=== PATIENT | male | born 1970 | race Caucasian/White ===

== ENCOUNTER 2019-03-26 12:58 | Inpatient (IN) | payer OTHER ==
--- NOTE | 2019-03-26 13:18 | BHS.RME ---
Substance Use & Tx History - Substance Use History Opiates (Heroin) Frequency of use: Daily Substance route: Injection (ex: intravenous or skin popping) Date of Last Use: 03/26/19 Cocaine (Powder) Frequency of use: Less than 3 times per week Substance route: Injection (ex: intravenous or skin popping) Date of Last Use: 03/25/19 Alcohol Frequency of use: More than 3 times per week Substance route: Oral Date of Last Use: 03/25/19 Cannabis Frequency of use: Daily Substance route: Smoking Date of Last Use: 03/25/19 COWS - Scale Resting Pulse: 0= [place] 80 or Below Sweatin=Flushed/Facial Moisture Restless Observation: 1= Difficult to Sit Still Pupil Size: 1= Pupils >than Normal Bone or Joint Aches: 2= Severe Diffuse Aches Runny Nose/ Eye Tearin= Runny Nose/Eyes GI Upset > 30mins: 2= Nausea/Diarrhea Tremor Observation: 1= Tremor [place], Not Seen Yawning Observation: 1= 1-2x During Session Anxiety or Irritability: 1=Feels Anxious/Irritable Goose Flesh Skin: 3=Piloerection COWS Score: 16 CIWA Nausea/Vomitin Muscle Tremors: 2 Anxiety: 3 Agitation: 2 Paroxysmal Sweats: 2 Orientation: 0-Oriented Tacttile Disturbances: 0-None Auditory Disturbances: 0-None Visual Disturbances: 0-None Headache: 0-None Present CIWA-Ar Total Score: 12
[2019-03-26 13:55] VITALS: BMI 29.0
--- NOTE | 2019-03-26 14:22 | HP ---
COWS - Scale Resting Pulse: 0= [place] 80 or Below Sweatin=Flushed/Facial Moisture Restless Observation: 1= Difficult to Sit Still Pupil Size: 1= Pupils >than Normal Bone or Joint Aches: 2= Severe Diffuse Aches Runny Nose/ Eye Tearin= Runny Nose/Eyes GI Upset > 30mins: 2= Nausea/Diarrhea Tremor Observation: 1= Tremor [place], Not Seen Yawning Observation: 1= 1-2x During Session Anxiety or Irritability: 1=Feels Anxious/Irritable Goose Flesh Skin: 3=Piloerection COWS Score: 16 CIWA Score Nausea/Vomitin Muscle Tremors: 2 Anxiety: 3 Agitation: 2 Paroxysmal Sweats: 2 Orientation: 0-Oriented Tacttile Disturbances: 0-None Auditory Disturbances: 0-None Visual Disturbances: 0-None Headache: 0-None Present CIWA-Ar Total Score: 12 - Admission Criteria [facility] Guidelines: Admission for Medically Managed Detox: Requires at least one of the followin. CIWA greater than 12 2. Seizures within the past 24 hours 3. Delirium tremens within the past 24 hours 4. Hallucinations within the past 24 hours 5. Acute intervention needed for co occurring medical disorder 6. Acute intervention needed for co occurring psychiatric disorder 7. Severe withdrawal that cannot be handled at a lower level of care (continued vomiting, continued diarrhea, abnormal vital signs) requiring intravenous medication and/or fluids 8. Admitting History and Physical - Admission Chief Complaint: Mr. Butler is a 49 yo gentleman who presents to [facility] for detox from heroin, cocaine and alcohol. History of Present Illness: Mr. Butler is a 49 yo gentleman who presents to [facility] for detox from heroin, cocaine and alcohol. He has never been to this facility. He as in a methadone program 2 years ago. He was at [facility] last week, left AMA because he could not shower or rest. PMH: HTN on lisinopril and HCTZ PSH: right foot ligament repair Psych: none Substance use history: Heroin: first use age 30s, last use: yest, quantity: 6-8 bags. IV. 3 ODs, Narcan used once. Last OD: 3 years ago Alcohol: first use at the age of 12y, last use 2 days ago, quantity: one pint Vodka up to 3 days per week. Beer: 6 pack of 12 oz, up to 4 days per week. History black outs, last one years ago. No history of withdrawal seizure. Has an "eye poultry farmer". Gets the shakes if abstinent. Cocaine: first use at the age of 15 yo, last use 2 days ago, quantity: $20, injection Marijuana: first use at the age of 11y, last use last night, $10/3 days Nictotine: first use at the age of 11 yo, last smoked 2 hours ago, 1/2 ppd - Smoking History Smoking history: Current every day smoker Have you smoked in the past 12 months: Yes Aproximately how many cigarettes per day: 10 Admission ROS S - HPI Allergies/Adverse Reactions: Allergies Allergy/AdvReac Type Severity Reaction Status Date / Time No Known Allergies Allergy Verified 03/26/19 13:48 - Ebola screening Have you traveled outside of the country in the last 21 days: No Have you had contact with anyone from an Ebola affected area: No Have you been sick,other than usual withdrawal symptoms: No Do you have a fever: No - Review of Systems Constitutional: Chills EENT: reports: Blurred Vision, Hearing Loss Respiratory: reports: No Symptoms reported Cardiac: reports: No Symptoms Reported GI: reports: Nausea : reports: No Symptoms Reported Musculoskeletal: reports: Back Pain Integumentary: reports: No Symptoms Reported Neuro: reports: No Symptoms reported Endocrine: reports: No Symptoms Reported Hematology: reports: No Symptoms Reported Psychiatric: reports: Anxious Patient History - Patient Medical History Hx Asthma: No Hx Chronic Obstructive Pulmonary Disease (COPD): No Hx Cardiac Disorders: No Hx Hypertension: Yes Hx Seizures: No Hx Diabetes: No Hx Gastrointestinal Disorders: No Hx Genitourinary Disorders: No Hx Sexually Transmitted Disorders: No Hx Renal Disease (ESRD): No Hx Depression: No Hx Suicide Attempt: No Hx Schizophrenia: No - Patient Surgical History Past Surgical History: Yes Hx Orthopedic Surgery: Yes (Fx R ligament repair) Anesthesia Reaction: No - PPD History Previous Implant?: Yes Documented Results: Negative w/o proof Implanted On Prior [facility] Admission?: No - Smoking Cessation Smoking history: Current every day smoker Have you smoked in the past 12 months: Yes Aproximately how many cigarettes per day: 10 Hx Chewing Tobacco Use: No Initiated information on smoking cessation: Yes 'Breaking Loose' booklet given: 03/26/19 - Substances abused Heroin Substance route: Injection Frequency: Daily Amount used: 6-10 bags Age of first use: 28 Date of last use: 03/25/19 Alcohol Substance route: Oral Frequency: Daily Amount used: 1 pint vodka Age of first use: 13 Date of last use: 03/23/19 Marijuana/Hashish Substance route: Smoking Frequency: Daily Amount used: 1 joint Age of first use: 11 Date of last use: 03/25/19 Cocaine Substance route: Injection Frequency: 1-2 times per week Amount used: $20 Age of first use: 15 Date of last use: 03/24/19 Admission Physical Exam [facility] - Vital Signs Vital Signs: Vital Signs - 24 hr 03/26/19 13:49 Temperature 97.7 F Pulse Rate 66 Respiratory 18 Rate Blood Pressure 151/73 - Physical General Appearance: Yes: Within Normal Limits, Mild Distress HEENTM: Yes: Hearing grossly Normal, Normal Voice Respiratory: Yes: Lungs Clear, Normal Breath Sounds Neck: Yes: Within Normal Limits Breast: Yes: Breast Exam Deferred Cardiology: Yes: Regular Rate, S1, S2 Abdominal: Yes: Normal Bowel Sounds, Non Tender, Flat, Soft Back: Yes: Normal Inspection Musculoskeletal: Yes: Within Normal Limits Extremities: Yes: Within Normal Limits Neurological: Yes: Fully Oriented, Alert Integumentary: Yes: Track [place]orne (no signs of infection) - Diagnostic (1) Opioid dependence, uncomplicated Current Visit: Yes Status: Acute (2) Alcohol dependence with withdrawal, uncomplicated Current Visit: Yes Status: Acute (3) Cocaine abuse Current Visit: Yes Status: Acute (4) Nicotine dependence Current Visit: Yes Status: Acute (5) HTN (hypertension) Current Visit: Yes Status: Chronic (6) Cannabis abuse Current Visit: Yes Status: Chronic Cleared for Admission [facility] - Detox or Rehab [facility] Level of Care: Medically Managed Breathalyzer - Breathalyzer Breathalyzer: 0 Urine Drug Screen - Test Device Lot number: [id number] Expiration date: 01/11/21 - Control Is test valid?: Yes - Results Drug screen NEGATIVE: No Urine drug screen results: THC-Marijuana, SPENCER-Cocaine, FEN-Fentanyl, MOP-Opiates , MTD-Methadone Inpatient Rehab Admission - Rehab Decision to Admit Inpatient rehab admission?: No
[2019-03-26] MEDS ORDERED: IBUPROFEN 400 MG TABLET (FP) PO PRN (14:28)
[2019-03-26] MEDS ORDERED: hydrOXYzine PAMOATE 25 MG CAPSULE (FP) PO PRN (14:28)
[2019-03-26] MEDS ORDERED: MELATONIN 5 MG TABLETS PO PRN (14:28)
[2019-03-26] MEDS ORDERED: MAG HYDROX/AL HYDROX/SIMETH 30 ML UNIT-DOSE CUP PO PRN (14:28)
[2019-03-26] MEDS ORDERED: METHOCARBAMOL 500 MG TABLET PO PRN (14:28)
[2019-03-26] MEDS ORDERED: ACETAMINOPHEN 325 MG TABLET (FP) PO PRN ×2 (14:28)
[2019-03-26] MEDS ORDERED: cloNIDine HCL 0.1 MG TABLET PO PRN (14:28)
[2019-03-26] MEDS ORDERED: MAGNESIUM CITRATE 300 ML BOTTLE PO PRN (14:28)
[2019-03-26] MEDS ORDERED: MENTHOL/PHENOL 1 EACH UD MM PRN (14:28)
[2019-03-26] MEDS ORDERED: MAGNESIUM HYDROX 2400MG/30ML ORAL SUSPENSION 30 ML CUP PO PRN (14:28)
[2019-03-26] MEDS ORDERED: BISMUTH SUBSALICYLATE 262 MG/15 ML BTL PO PRN (14:28)
[2019-03-26] MEDS ORDERED: chlordiazePOXIDE HCL 25 MG CAPSULE PO PRN (14:28)
[2019-03-26] MEDS ORDERED: METHADONE HCL 10 MG TABLET (FOR DETOX USE ONLY) PO ONE (15:40)
[2019-03-26] MEDS: chlordiazePOXIDE HCL 25 MG CAPSULE PO SCH ×2 (16:33→22:17)
[2019-03-26] MEDS: NICOTINE 14 MG/24 HOURS TOPICAL PATCH TD SCH (16:34)
[2019-03-26 17:20] LABS: HEMATOCRIT 42.1 % (35.4-49); HEMOGLOBIN 14.3 GM/dL (11.7-16.9); MCH 29.2 pg (25.7-33.7); MCHC 33.9 g/dl (32.0-35.9); MEAN CELL VOLUME 86.2 fl (80-96); PLATELET COUNT 221 K/MM3 (134-434); RBC 4.89 M/mm3 (4.00-5.60); RDW 13.8 % (11.9-15.9); WHITE BLOOD COUNT 7.7 K/mm3 (4.0-10.0)
[2019-03-26 17:25] LABS: ALBUMIN 4.2 g/dl (3.4-5.0); BILIRUBIN,TOTAL 0.3 mg/dL (0.2-1); BLOOD UREA NITROGEN 13.7 mg/dL (7-18); CALCIUM 8.9 mg/dL (8.5-10.1); TOT PROT 7.5 g/dl (6.4-8.2)
[2019-03-26] MEDS: THIAMINE HCL 100 MG TABLET (FP) PO SCH (22:17)
[2019-03-27] MEDS: chlordiazePOXIDE HCL 25 MG CAPSULE PO SCH ×4 (06:04→22:22)
[2019-03-27] MEDS ORDERED: METHADONE HCL 5 MG TABLET (FOR DETOX USE ONLY) ONE (08:54)
[2019-03-27] MEDS ORDERED: METHADONE HCL 10 MG TABLET (FOR DETOX USE ONLY) ONE (08:55)
[2019-03-27] MEDS ORDERED: PATIENT'S OWN MEDICATION (NON-FORMULARY) (Lisinopril/Hydrochlorothiazide [Lisinopril-Hctz PO SCH (10:00)
[2019-03-27] MEDS ORDERED: METHADONE (DETOX) 20 MG, METHADONE (DETOX) 5 MG PO ONE (10:00)
[2019-03-27] MEDS: PRENATAL VITAMINS W/ FOLIC ACID TABLET (FP) PO SCH (10:51)
[2019-03-27] MEDS: NICOTINE 14 MG/24 HOURS TOPICAL PATCH TD SCH (10:55)
[2019-03-27] MEDS: LISINOPRIL 10 MG TABLET (FP) PO SCH (14:27)
[2019-03-27] MEDS: HYDROCHLOROTHIAZIDE 12.5 MG CAPSULE (FP) PO SCH (14:27)
--- NOTE | 2019-03-27 15:30 | PN ---
S CIWA - CIWA Score Nausea/Vomitin Muscle Tremors: 2 Anxiety: 2 Agitation: 2 Paroxysmal Sweats: No Perspiration Orientation: 0-Oriented Tacttile Disturbances: 1-Very Mild Itch/Numbness Auditory Disturbances: 0-None Visual Disturbances: 0-None Headache: 1-Very Mild CIWA-Ar Total Score: 10 BHS COWS - Scale Resting Pulse: 0= [place] 80 or Below Sweatin= No chills or Flushing Restless Observation: 1= Difficult to Sit Still Pupil Size: 0= Normal to Room Light Bone or Joint Aches: 1= Mild Discomfort Runny Nose/ Eye Tearin= Nasal Congestion GI Upset > 30mins: 1= Stomach Cramp Tremor Observation of Outstretched Hands: 1= Tremor [place], Not Seen Yawning Observation: 1= 1-2x During Session Anxiety or Irritability: 1=Feels Anxious/Irritable Goose Flesh Skin: 0=Smooth Skin COWS Score: 7 S Progress Note (SOAP) Subjective: alert,irritable,anxious,interrupted sleep,pain in the body and back Objective: 03/27/19 15:29 Vital Signs Temperature 97.9 F 03/27/19 14:05 Pulse Rate 64 03/27/19 14:05 Respiratory Rate 18 03/27/19 14:05 Blood Pressure 114/77 03/27/19 14:05 O2 Sat by Pulse Oximetry (%) Laboratory Last Values WBC 7.7 K/mm3 (4.0-10.0) 03/26/19 14:30 RBC 4.89 M/mm3 (4.00-5.60) 03/26/19 14:30 Hgb 14.3 GM/dL (11.7-16.9) 03/26/19 14:30 Hct 42.1 % (35.4-49) 03/26/19 14:30 MCV 86.2 fl (80-96) 03/26/19 14:30 MCH 29.2 pg (25.7-33.7) 03/26/19 14:30 MCHC 33.9 g/dl (32.0-35.9) 03/26/19 14:30 RDW 13.8 % (11.9-15.9) 03/26/19 14:30 Plt Count 221 K/MM3 (134-434) 03/26/19 14:30 MPV 8.0 fl (7.5-11.1) 03/26/19 14:30 Sodium 138 mmol/L (136-145) 03/26/19 14:30 Potassium 4.0 mmol/L (3.5-5.1) 03/26/19 14:30 Chloride 106 mmol/L (98-107) 03/26/19 14:30 Carbon Dioxide 27 mmol/L (21-32) 03/26/19 14:30 Anion Gap 6 MMOL/L (8-16) L 03/26/19 14:30 BUN 13.7 mg/dL (7-18) 03/26/19 14:30 Creatinine 1.0 mg/dL (0.55-1.3) 03/26/19 14:30 Est GFR (CKD-EPI)AfAm 100.55 03/26/19 14:30 Est GFR (CKD-EPI)NonAf 86.76 03/26/19 14:30 Random Glucose 111 mg/dL (74-106) H 03/26/19 14:30 Calcium 8.9 mg/dL (8.5-10.1) 03/26/19 14:30 Total Bilirubin 0.3 mg/dL (0.2-1) 03/26/19 14:30 AST 16 U/L (15-37) 03/26/19 14:30 ALT 35 U/L (13-61) 03/26/19 14:30 Alkaline Phosphatase 91 U/L (45-117) 03/26/19 14:30 Total Protein 7.5 g/dl (6.4-8.2) 03/26/19 14:30 Albumin 4.2 g/dl (3.4-5.0) 03/26/19 14:30 RPR Titer Nonreactive (NONREACTIVE) 03/26/19 14:30 Assessment: 03/27/19 15:29 withdrawal symptom Plan: continue detox methadone and librium regimen,fasting glucose in am
[2019-03-27] MEDS: THIAMINE HCL 100 MG TABLET (FP) PO SCH (22:22)
[2019-03-28] MEDS: chlordiazePOXIDE HCL 25 MG CAPSULE PO SCH ×2 (06:05→11:23)
[2019-03-28] MEDS ORDERED: METHADONE HCL 10 MG TABLET (FOR DETOX USE ONLY) PO ONE (10:00)
[2019-03-28 10:02] VITALS: BP 120/73; PULSE 69; TEMP 97.7
--- NOTE | 2019-03-28 10:05 | PN ---
[facility] CIWA - CIWA Score Nausea/Vomitin-Mild Nausea/No Vomiting Muscle Tremors: 2 Anxiety: 1-Mildly Anxious Agitation: 2 Paroxysmal Sweats: No Perspiration Orientation: 0-Oriented Tacttile Disturbances: 0-None Auditory Disturbances: 0-None Visual Disturbances: 0-None Headache: 1-Very Mild CIWA-Ar Total Score: 7 BHS COWS - Scale Resting Pulse: 1= [place] 81-100 Sweatin= Chills/Flushing Restless Observation: 1= Difficult to Sit Still Pupil Size: 1= Pupils >than Normal Bone or Joint Aches: 1= Mild Discomfort Runny Nose/ Eye Tearin= Nasal Congestion GI Upset > 30mins: 1= Stomach Cramp Tremor Observation of Outstretched Hands: 1= Tremor [place], Not Seen Yawning Observation: 1= 1-2x During Session Anxiety or Irritability: 1=Feels Anxious/Irritable Goose Flesh Skin: 0=Smooth Skin COWS Score: 10 S Progress Note (SOAP) Subjective: Here for alcohol and heroin detox. Pt states he was in a methadone program and walked away at 70mg and relapsed using heroin. Pt states he would like to be abstinent- d/w pt suboxone as an alternative. O: Vital Signs - 24 hr 03/27/19 03/27/19 03/27/19 11:05 14:05 16:52 Temperature 96.4 F L 97.9 F 98.1 F Pulse Rate 66 64 63 Respiratory 20 18 16 Rate Blood Pressure 106/72 114/77 107/65 03/27/19 03/28/19 03/28/19 20:40 00:29 07:29 Temperature 98.2 F 97.9 F Pulse Rate 68 58 L Respiratory 18 18 18 Rate Blood Pressure 118/74 111/61 03/28/19 10:01 Temperature 97.7 F Pulse Rate 69 Respiratory 16 Rate Blood Pressure 120/73 Laboratory Tests 03/26/19 03/26/19 03/26/19 14:30 14:30 14:30 WBC 7.7 RBC 4.89 Hgb 14.3 Hct 42.1 MCV 86.2 MCH 29.2 MCHC 33.9 RDW 13.8 Plt Count 221 MPV 8.0 Sodium 138 Potassium 4.0 Chloride 106 Carbon Dioxide 27 Anion Gap 6 L BUN 13.7 Creatinine 1.0 Est GFR (CKD-EPI)AfAm 100.55 Est GFR (CKD-EPI)NonAf 86.76 Random Glucose 111 H Fasting Glucose Calcium 8.9 Total Bilirubin 0.3 AST 16 ALT 35 Alkaline Phosphatase 91 Total Protein 7.5 Albumin 4.2 RPR Titer Nonreactive 03/28/19 07:25 WBC RBC Hgb Hct MCV MCH MCHC RDW Plt Count MPV Sodium Potassium Chloride Carbon Dioxide Anion Gap BUN Creatinine Est GFR (CKD-EPI)AfAm Est GFR (CKD-EPI)NonAf Random Glucose Fasting Glucose 122 H Calcium Total Bilirubin AST ALT Alkaline Phosphatase Total Protein Albumin RPR Titer FBS 122 a/p: Continue alcohol and heroin detox protocols FBS- 122- d/w pt to f/u PCP to repeat test and eval for pre diabetes
[2019-03-28] MEDS: HYDROCHLOROTHIAZIDE 12.5 MG CAPSULE (FP) PO SCH (11:23)
[2019-03-28] MEDS: NICOTINE 14 MG/24 HOURS TOPICAL PATCH TD SCH (11:23)
[2019-03-28] MEDS: LISINOPRIL 10 MG TABLET (FP) PO SCH (11:23)
[2019-03-28] MEDS: PRENATAL VITAMINS W/ FOLIC ACID TABLET (FP) PO SCH (11:23)
--- NOTE | 2019-03-28 11:54 | DS ---
[facility] Detox Discharge Summary Admission Date: 03/26/19 Discharge Date: 03/28/19 - History Present History: Cocaine Dependence, Opioid Dependence Pertinent Past History: Pt wants to leave today- no reason given. Pt states he will follow-up for methadone treatment. Has been on methadone in the past. Vital Signs - 24 hr 03/27/19 03/27/19 03/27/19 14:05 16:52 20:40 Temperature 97.9 F 98.1 F 98.2 F Pulse Rate 64 63 68 Respiratory 18 16 18 Rate Blood Pressure 114/77 107/65 118/74 03/28/19 03/28/19 03/28/19 00:29 07:29 10:01 Temperature 97.9 F 97.7 F Pulse Rate 58 L 69 Respiratory 18 18 16 Rate Blood Pressure 111/61 120/73 Laboratory Tests 03/26/19 03/26/19 03/26/19 14:30 14:30 14:30 WBC 7.7 RBC 4.89 Hgb 14.3 Hct 42.1 MCV 86.2 MCH 29.2 MCHC 33.9 RDW 13.8 Plt Count 221 MPV 8.0 Sodium 138 Potassium 4.0 Chloride 106 Carbon Dioxide 27 Anion Gap 6 L BUN 13.7 Creatinine 1.0 Est GFR (CKD-EPI)AfAm 100.55 Est GFR (CKD-EPI)NonAf 86.76 Random Glucose 111 H Fasting Glucose Calcium 8.9 Total Bilirubin 0.3 AST 16 ALT 35 Alkaline Phosphatase 91 Total Protein 7.5 Albumin 4.2 RPR Titer Nonreactive 03/28/19 07:25 WBC RBC Hgb Hct MCV MCH MCHC RDW Plt Count MPV Sodium Potassium Chloride Carbon Dioxide Anion Gap BUN Creatinine Est GFR (CKD-EPI)AfAm Est GFR (CKD-EPI)NonAf Random Glucose Fasting Glucose 122 H Calcium Total Bilirubin AST ALT Alkaline Phosphatase Total Protein Albumin RPR Titer pt is employed. Will f/u PCP - Physical Exam Results Vital Signs: Vital Signs Temperature 97.7 F 03/28/19 10:01 Pulse Rate 69 03/28/19 10:01 Respiratory Rate 16 03/28/19 10:01 Blood Pressure 120/73 03/28/19 10:01 O2 Sat by Pulse Oximetry (%) - Treatment Hospital Course: Detox Protocol Followed - Medication Discharge Medications: Ambulatory Orders Lisinopril/Hydrochlorothiazide [Lisinopril-Hctz 5 mg Tab] 1 each PO DAILY 03/26/19 - AMA Did Patient Leave Against Medical Advice: Yes
[2019-03-29] MEDS ORDERED: chlordiazePOXIDE HCL 10 MG CAPSULE PO PRN
[2019-03-29] MEDS ORDERED: chlordiazePOXIDE HCL 10 MG CAPSULE PO SCH (05:00)
[2019-03-29] MEDS ORDERED: METHADONE (DETOX) 10 MG, METHADONE (DETOX) 5 MG PO ONE (10:00)
[2019-03-30] MEDS ORDERED: chlordiazePOXIDE HCL 10 MG CAPSULE PO SCH (05:00)
[2019-03-30] MEDS ORDERED: METHADONE HCL 10 MG TABLET (FOR DETOX USE ONLY) PO ONE (10:00)
[2019-03-31] MEDS ORDERED: chlordiazePOXIDE HCL 10 MG CAPSULE PO ONE (05:00)
[2019-03-31] MEDS ORDERED: METHADONE HCL 5 MG TABLET (FOR DETOX USE ONLY) PO ONE (06:00)
== END 2019-03-28 13:00 | disposition left against medical advice (07) | DRG 894 ==
LOC: YASAS 12:58 → Y6N 14:58
PROVIDERS: ADMIT Allergy & Immunology; ATTEND Allergy & Immunology
PROC: HZ2ZZZZ Detoxification Services for Substance Abuse Treatment (ICD-10-PCS; principal; 2019-03-26)
DX: F10.230 Alcohol dependence with withdrawal, uncomplicated (principal); F14.20 Cocaine dependence, uncomplicated; F11.23 Opioid dependence with withdrawal; F12.20 Cannabis dependence, uncomplicated; F17.210 Nicotine dependence, cigarettes, uncomplicated; I10 Essential (primary) hypertension
CPT/HCPCS: 36415; 80053; 82947; 85027; 86593